=== PATIENT | male | born 1960 | race Caucasian/White ===

== ENCOUNTER → 2025-05-19 15:58 | Outpatient (CLI) | payer OTHER, SELFPAY ==
--- NOTE | 2025-05-19 16:21 | DI.MRI.S_ITS ---
PROCEDURE: MR SHOULDER RT WO CON INDICATIONS: STRAIN OF MUSCLE TECHNIQUE: Noncontrast oblique coronal T2 fast spin echo with fat saturation, oblique sagittal T1 spin echo and T2 fast spin echo with fat saturation, axial T1 spin echo and T2 fast spin echo with fat saturation through the shoulder. COMPARISON: None. FINDINGS: Quality: Adequate. Tendons: Rotator cuff tendons: Full-thickness full width supraspinatus tendon tear from the insertion with retraction approximately 4.1 centimeter. Full-thickness partial width tear of the anterior insertional fibers of the infraspinatus tendon. Teres minor tendon is intact. Near full-thickness articular sided insertional tear of subscapularis. Long head of biceps tendon: High-grade partial tear at the rotator interval with subluxation. Muscles: No disproportionate fatty degeneration of the rotator cuff musculature. Acromioclavicular joint: Moderate degenerative changes at the acromioclavicular joint. Glenohumeral joint: Labrum: Diffuse labral degeneration. Cartilage: Full-thickness cartilage defect at the superior humeral head. Glenohumeral marginal osteophytes. Fluid: Small effusion Capsule: No pericapsular inflammation or scarring. Alignment: No dislocation. Bursa: Subacromial/subdeltoid bursa: Distended Subcoracoid bursa: Nondistended. Bones: No fracture. Subacromial spurring. IMPRESSION: Full-thickness full width supraspinatus tendon tear. Full-thickness partial width infraspinatus tendon tear. Near full-thickness subscapularis tendon tear. Acromioclavicular and glenohumeral osteoarthritis. Small effusion. Dictated by: Jam Armstrong M.D. on 05/20/2025 at 8:58 Approved by: Jam Armstrong M.D. on 05/20/2025 at 9:03
== END ==
DX: S46.011A Strain of muscle(s) and tendon(s) of the rotator cuff of right shoulder, initial encounter (principal); M19.011 Primary osteoarthritis, right shoulder; M25.411 Effusion, right shoulder; X58.XXXA Exposure to other specified factors, initial encounter
CPT/HCPCS: 73221